=== PATIENT | female | born 2000 | race Caucasian/White ===

== ENCOUNTER 2021-12-23 19:36 | Emergency (ER) | payer SELFPAY ==
[2021-12-23 19:53] VITALS: BP 120/72; PULSE 91; TEMP 98.6; BMI 24.5
[2021-12-23 22:04] LABS: EPI CELLS >36 /uL (0-25.1); HYALINE CASTS 1 /uL (0-3.1); PH,URINE 5.5 (5.0-8.0); URINE APPEARANCE CLOUDY; URINE BACTERIA >9,000 /uL (0-1359); URINE BILIRUBIN NEGATIVE (NEGATIVE); URINE COLOR YELLOW; URINE GLUCOSE (UA) NEGATIVE (NEGATIVE); URINE KETONE TRACE (NEGATIVE); URINE LEUK ESTERASE NEGATIVE (NEGATIVE); URINE NITRITE POSITIVE (NEGATIVE); URINE PROTEIN NEGATIVE (NEGATIVE); URINE RBC 4 /uL (0-23.9); URINE UROBILINOGEN 0.2 mg/dL (0.2-1.0); URINE WBC 15 /uL (0-25.8)
== END 2021-12-23 23:35 | disposition home or self-care (01) ==
LOC: JERFT 19:36
DX: R30.0 Dysuria (principal)
CPT/HCPCS: 36415; 81003; 84703; 87070; 87077; 87086; 87186; 87205; 87491; 87591; 99284-25

== ENCOUNTER 2022-05-06 21:43 | Emergency (ER) | payer SELFPAY ==
[2022-05-06 21:48] VITALS: BMI 26.4
[2022-05-06 23:40] LABS: BASO % 0.5 % (0-2.0); EOS % 0.8 % (0-4.5); HEMATOCRIT 35.2 % (32.4-45.2); HEMOGLOBIN 12.1 GM/dL (10.7-15.3); LYMPH % 33.1 % (8-40); MCH 31.1 pg (25.7-33.7); MCHC 34.4 g/dl (32.0-36.0); MEAN CELL VOLUME 90.4 fl (80-96); MEAN PLT VOLUME 8.7 fl (7.5-11.1); MONO % 10.4 % (3.8-10.2); NEUT % 55.2 % (42.8-82.8); PLATELET COUNT 239 10^3/uL (134-434); RBC 3.89 M/mm3 (3.60-5.2); RDW 12.6 % (11.6-15.6); WHITE BLOOD COUNT 5.9 K/mm3 (4.0-10.0)
[2022-05-06 23:43] LABS: EPI CELLS 3 /uL (0-25.1); HYALINE CASTS 0 /uL (0-3.1); URINE APPEARANCE CLEAR; URINE BACTERIA 2747 /uL (0-1359); URINE BILIRUBIN NEGATIVE (NEGATIVE); URINE COLOR YELLOW; URINE GLUCOSE (UA) NEGATIVE (NEGATIVE); URINE KETONE NEGATIVE (NEGATIVE); URINE LEUK ESTERASE NEGATIVE (NEGATIVE); URINE NITRITE NEGATIVE (NEGATIVE); URINE PROTEIN NEGATIVE (NEGATIVE); URINE RBC 18 /uL (0-23.9); URINE UROBILINOGEN 0.2 mg/dL (0.2-1.0); URINE WBC 10 /uL (0-25.8)
[2022-05-06 23:58] LABS: CALCIUM 8.8 mg/dL (8.5-10.1)
[2022-05-06 23:59] LABS: ALBUMIN 3.8 g/dl (3.4-5.0); BLOOD UREA NITROGEN 9.5 mg/dL (7-18)
[2022-05-07 00:02] LABS: CREATININE 0.8 mg/dL (0.55-1.3)
[2022-05-07 00:04] LABS: BILIRUBIN,TOTAL 0.6 mg/dL (0.2-1); TOT PROT 7.3 g/dl (6.4-8.2)
[2022-05-07 01:24] VITALS: TEMP 98.9
[2022-05-07 02:08] VITALS: BP 127/84; PULSE 68; RESP 18
== END 2022-05-07 02:33 | disposition home or self-care (01) ==
LOC: JER 21:43
DX: O20.9 Hemorrhage in early pregnancy, unspecified (principal); Z3A.01 Less than 8 weeks gestation of pregnancy
CPT/HCPCS: 36415; 76817-TC; 80053; 81003; 84702; 85025; 86850; 86900; 86901; 87086; 87186; 99284-25